=== PATIENT | male | born 1955 | race African-American/Black ===

== ENCOUNTER → 2019-10-18 | Outpatient (CLI) | payer MEDICARE, OTHER ==
[2016-02-18 12:27] VITALS: BP 155/90
[~2019-10-18] MED LIST: CHLO25TA4 PO; LEVO500T59 PO
--- NOTE | 2019-10-18 17:38 | RAD ---
EXAM: CT Head without IV contrast INDICATION: Blurry vision. Right-sided weakness. TECHNIQUE: Multi-detector row CT images were obtained of the head without the use of IV contrast. All CT scans performed at this facility utilize dose optimization techniques as appropriate to the exam, including the following: Automated exposure control and adjustment of the mA and/or KV according to patient size (this includes techniques or standardized protocols for targeted exams where dose is indication/reason for exam). COMPARISON: None FINDINGS: BRAIN PARENCHYMA: No evidence of acute intraparenchymal hemorrhage or infarct. No abnormal parenchymal density or mass. VENTRICLES & EXTRA-AXIAL SPACES: Ventricles are within normal limits. Basilar cisterns are patent. No pathologic extra-axial fluid collection or mass. ORBITS: Orbital contents are unremarkable. SINUSES: Visualized paranasal sinuses and mastoid air cells are clear. OSSEOUS & SOFT TISSUES: Calvarium and skull base are intact. IMPRESSION: No acute intracranial pathology. Electronically signed by: Merlyn Boles MD (10/18/2019 5:35 PM) [id number]
== END ==
LOC: CT 17:12
PROVIDERS: ATTEND Family Medicine
DX: R29.818 Other symptoms and signs involving the nervous system (principal)
CPT/HCPCS: 70450

== ENCOUNTER 2019-11-16 11:16 | Emergency (ER) | payer MEDICARE, OTHER ==
[~2019-11-16] VITALS: Ht 185.4 cm; Wt 102.4 kg
--- NOTE | 2019-11-16 12:10 | PHYS DOC ---
Past History Past Medical History: High Cholesterol, Hypertension, Other Past Surgical History: Other Additional Past Surgical Histo: Bypass Alcohol Use: None Drug Use: None General Adult EDM: Chief Complaint: MULTIPLE COMPLAINTS HPI: HPI: 64 male presents after being sent down from his PCP office due to right index finger twitching and chronic intermittent hiccups over the last 2 months. Patient reports no hiccups now. Patient was previously placed on Protonix, Gabapentin, and Baclofen. Reports he stopped taking the meds after several weeks because he was having problems holding a cup. Reports after stopping the medications his symptoms improved. Reports hiccups worse after eating. Reports is able to drink without issue. Discussed with Dr. Knight (PCP) who requests routine labs and CXR be obtained and he will work on GI specialist referral. Review of Systems: Review of Systems: Constitutional: Denies fever or chills Eyes: Denies redness or eye pain HENT: Denies nasal congestion or sore throat Respiratory: Denies cough or shortness of breath Cardiovascular: Denies chest pain or palpitations GI: Denies abdominal pain, nausea, or vomiting; reports hiccups after eating : Denies dysuria or hematuria Musculoskeletal: Denies back pain or joint pain Integument: Denies rash or skin lesions Neurologic: Denies headache, focal weakness or sensory changes Complete systems were reviewed and found to be within normal limits, except as documented in this note. Physical Exam: PE: Constitutional: Well developed, well nourished, no acute distress, non-toxic appearance HENT: Normocephalic, atraumatic Eyes: Conjunctiva normal, no discharge Neck: Normal range of motion, no tenderness, supple Cardiovascular: Heart rate normal, regular rhythm Lungs & Thorax: No respiratory distress, equal chest rise and fall Abdomen: Soft, no tenderness Skin: Warm, dry, no erythema, no rash Extremities: No tenderness, ROM intact, no edema Neurologic: Alert and oriented X 3, no focal deficits noted Psychologic: Affect normal, judgment normal Current Patient Data: Vital Signs: Vital Signs Date Time Temp Pulse Resp B/P (MAP) Pulse Ox O2 Delivery O2 Flow Rate FiO2 11/16/19 11:28 98.2 69 16 151/85 (107) 99 Room Air EKG: EKG: @1200 NSR at 62bpm, NO ST elevation, Q wave III, QRS 94ms, QT/QTc 422/431ms Radiology/Procedures: Radiology/Procedures: PROCEDURE: CHEST PA & LATERAL EXAM: CHEST PA LATERAL 11/16/2019 11:54 AM CLINICAL INDICATION:Hiccups COMPARISON:None TECHNIQUE:PA and lateral views of the chest FINDINGS:There are surgical changes of median sternotomy. The heart is mildly enlarged. Lungs are adequately expanded. No consolidation, pleural effusion, or pneumothorax. No acute osseous abnormality. IMPRESSION:No acute cardiopulmonary abnormality. Electronically signed by: Tiffanie Hester MD (11/16/2019 12:44 PM) [id number] Course & Med Decision Making: Course & Med Decision Making Pertinent Labs and Imaging studies reviewed. (See chart for details) Patient presents with history of right index finger tremor and chronic intermittent hiccups x 2 months. Previously started on Protonix, Gabapentin, a nd Baclofen. Patient reports has had some side effects from these medications but ended up going back due to continued hiccups. Labs obtained and posted to chart. CXR without acute issue. PCP working on referral to GI. Patient advised to discontinue Baclofen as twitching likely side effect of medications. Patient stable for discharge with outpatient follow-up with PCP/GI. Discussed findings and plan with patient, who acknowledges understanding and agreement. Dragon Disclaimer: Digital Lifeboat Disclaimer: This electronic medical record was generated, in whole or in part, using a voice recognition dictation system. Departure Departure: Impression: Primary Impression: Chronic hiccoughs Additional Impression: Tremor Disposition: HOME/RESIDENCE PRIOR TO ADM Condition: STABLE Referrals: FLORY KNIGHT MD (PCP) OSMANY RIOS MD Patient Instructions: Chronic Renal Insufficiency, Hiccups, Tremor Additional Instructions: Your tremor is likely secondary a side effect caused by Baclofen. Please discontinue Baclofen. You may benefit from having a GI scope for further evaluation. Your renal function is elevated. It is unclear if this is a new finding or old. Please follow with your doctor to have your kidney function rechecked. Justification of Admission: Justification of Admission: Justification of Admission Dx: N/A EMERSON CLEMENT DO Nov 16, 2019 12:10
[2019-11-16 12:32] LABS: BASO % 1 % (0-3); EOS % 1 % (0-3); HEMATOCRIT 29.3 % (39.0-53.0); HEMOGLOBIN 9.6 g/dL (13.0-17.5); LYMPH # 1.9 x10^3/uL (1.0-4.8); LYMPH % 21 % (24-48); MEAN CORPUSCULAR HEMOGLOBIN 28 pg (25-35); MEAN CORPUSCULAR HGB CONC 33 g/dL (31-37); MEAN CORPUSCULAR VOLUME 86 fL (79-100); MONO # 0.7 x10^3/uL (0.0-1.1); MONO % 8 % (0-9); NEUT # 6.1 x10^3uL (1.8-7.7); NEUT % 70 % (31-73); PLATELET COUNT 426 x10^3/uL (140-400); RED BLOOD COUNT 3.41 x10^6/uL (4.30-5.70); RED CELL DISTRIBUTION WIDTH 16.8 % (11.5-14.5); WHITE BLOOD COUNT 8.8 x10^3/uL (4.0-11.0)
[2019-11-16 12:33] LABS: BASO # 0.1 x10^3/uL (0.0-0.2); EOS # 0.1 x10^3/uL (0.0-0.7)
--- NOTE | 2019-11-16 12:47 | RAD ---
EXAM: CHEST PA LATERAL 11/16/2019 11:54 AM CLINICAL INDICATION:Hiccups COMPARISON:None TECHNIQUE:PA and lateral views of the chest FINDINGS:There are surgical changes of median sternotomy. The heart is mildly enlarged. Lungs are adequately expanded. No consolidation, pleural effusion, or pneumothorax. No acute osseous abnormality. IMPRESSION:No acute cardiopulmonary abnormality. Electronically signed by: Tiffanie Hester MD (11/16/2019 12:44 PM) [id number]
[2019-11-16 12:50] LABS: ANION GAP 11 (6-14); BLOOD UREA NITROGEN 37 mg/dL (8-26); BUN/CREATININE RATIO 15 (6-20); CALCIUM 9.2 mg/dL (8.5-10.1); CARBON DIOXIDE 25 mmol/L (21-32); CHLORIDE 105 mmol/L (98-107); CREATININE 2.5 mg/dL (0.7-1.3); GFR 31.5; GLUCOSE 120 mg/dL (70-99); SODIUM 141 mmol/L (136-145)
[2019-11-16 13:06] LABS: ALBUMIN 2.2 g/dL (3.4-5.0); ALBUMIN/GLOBULIN RATIO 0.4 (1.0-1.7); ALK PHOS 163 U/L (46-116); ALT (SGPT) 58 U/L (16-63); AST (SGOT) 33 U/L (15-37); LIPASE 312 U/L (73-393); MAGNESIUM 2.1 mg/dL (1.8-2.4); TOTAL BILIRUBIN 0.7 mg/dL (0.2-1.0); TOTAL PROTEIN 7.2 g/dL (6.4-8.2)
[2019-11-16 13:38] VITALS: BP 136/79
--- NOTE | 2019-11-16 14:41 | EKG ---
[address] [address] Test Date: 2019-11-16 Test Time: 12:00:49 Pat Name: GRAEME COHEN Department: Room: Gender: M [employer]ble [employer]er: : 1955 Requested By: EMERSON CLEMENT Order Number: [id number] Reading MD: Flaco Solomon Measurements Intervals [place] Rate: 62 P: 21 MN: 192 QRS: 3 QRSD: 94 T: 26 QT: 422 QTc: 431 Interpretive Statements SINUS RHYTHM NONSPECIFIC ST-T WAVE CHANGES. Electronically Signed On 11-16-2019 16:50:19 CDT by Flaco Solomon
== END 2019-11-16 13:38 | disposition home or self-care (01) ==
LOC: ER 11:16
DX: R06.6 Hiccough (principal); R25.1 Tremor, unspecified; R25.3 Fasciculation; E78.00 Pure hypercholesterolemia, unspecified; I10 Essential (primary) hypertension
CPT/HCPCS: 36415; 71046; 80053; 82553; 83690; 83735; 84484; 85025; 93005; 99285-25

== ENCOUNTER → 2021-05-23 | Outpatient (CLI) | payer MEDICARE, OTHER ==
[2021-05-23 10:47] LABS: CALCIUM 8.8 mg/dL (8.5-10.1); CREATININE 2.3 mg/dL (0.7-1.3); GFR 34.5; POTASSIUM 3.8 mmol/L (3.5-5.1)
== END ==
LOC: LAB 09:54
PROVIDERS: ATTEND Family Medicine
DX: E78.5 Hyperlipidemia, unspecified (principal); I25.10 Atherosclerotic heart disease of native coronary artery without angina pectoris
CPT/HCPCS: 36415; 80048; 80061